=== PATIENT | female | born 1990 | race Caucasian/White ===

== ENCOUNTER 2017-11-04 02:51 | Observation (INO) ==
--- NOTE | 2017-11-04 02:56 | Emergency Department Note ---
Disposition Clinical Impression: Miscarriage Anemia Qualifiers: Anemia type: unspecified type Qualified Code(s): D64.9 - Anemia, unspecified Hypotension Qualifiers: Hypotension type: unspecified hypotension type Qualified Code(s): I95.9 - Hypotension, unspecified Disposition: Admitted As Inpatient Condition: Fair Referrals: Tripp Dunbar MD [Primary Care Provider] - Forms: ED Satisfaction Letter Time of Disposition: 06:00 HPI - General Chief complaint: ED OB/Uterine Contractions Stated complaint: miscarriage Time Seen by Provider: 11/04/17 02:53 Source: patient, EMS Mode of arrival: EMS Limitations: no limitations Nursing Notes Reviewed: Yes Vital Signs Reviewed: Yes - History of Present Illness HPI Narrative: Concern about status. Patient is a return from elopement from the ER from earlier visit. In summary, previous history of present illness as below. "27 y.o. female who presents c/o intermittent 4/10 L sided and lower abd cramping with vaginal bleeding x 3 days. Patient states the bleeding feels like a light menstrual cycle. She reports at an unknown gestation and states she believes her LMP to be approximately 3.5-4 months ago, with positive home tests 2.5 months ago. She is not taking vitamins and has not seen an OB yet. Patient states she previously had a miscarriage, where she lost one of her twins, and notes she woke up with heavy bleeding at that time. She reports N/V throughout the . She notes a history of kidney stones and denies similarity. She denies any hematuria, dysuria, diarrhea, constipation, CP, shortness of breath, or any other significant symptoms." Patient had a CBC performed at that time that showed stable hemoglobin. Vitals were stable. She had an ultrasound that showed approximately 6 week intrauterine with heartbeat, concern for early demise. Patient eloped prior to receiving results. She now returns via EMS due to concern for vaginal bleeding, passage of large clots and possible tissue. Patient notes that her bleeding has worsened, she is concern for either active or post miscarriage at this time. Denies any other new symptoms such as chest pain, shortness of breath, fevers, nausea, vomiting since her previous visit approximately 3-4 hours ago. - Related Data Allergies Allergy/AdvReac Type Severity Reaction Status Date / Time bee venom protein (honey bee) Allergy Swelling Verified 06/26/16 14:05 of Lip/Tongue/Throat hydrocodone Allergy Hives Verified 11/08/15 11:46 All systems ED: reviewed and negative except as stated. Constitutional: Denies: fever Cardiovascular: Denies: chest pain Respiratory: Denies: cough, dyspnea Gastrointestinal: Reports: abdominal pain. Denies: nausea, vomiting, diarrhea Genitourinary: Reports: other (Vaginal bleeding). Denies: urgency, dysuria, frequency, hematuria, discharge Integumentary: Denies: rash Neurological: Denies: headache, weakness, numbness, paresthesias PMH - Social History Smoking Status: Current every day smoker Alcohol use: Reports: rarely Drug use: Reports: none Physical Exam - General Limitations: no limitations General appearance: alert, in no apparent distress - Head Head exam: atraumatic, normocephalic, normal inspection - Eye Eye exam: Present: normal appearance, PERRL, EOMI - ENT ENT exam: normal exam, normal oropharynx, mucous membranes moist - Neck Neck exam: Present: normal inspection, full ROM, trachea midline - Chest Chest inspection: Present: normal inspection, symmetric chest wall rise - Respiratory Respiratory exam: Present: normal lung sounds bilaterally - Cardiovascular Cardiovascular exam: Present: regular rate, normal rhythm, normal heart sounds - Abdominal Exam Abdominal exam: Present: soft, tenderness (suprapubic tenderness). Absent: distention, guarding, rebound, rigidity - Female Battery Container Tester Aluminum present during exam: Yes (Nurse Drew Ferraro)) External Exam: Present: other (bleeding from vagina, slow steady stream; ). Absent: lesions, lacerations, ecchymosis Speculum Exam: Present: Pt Deferred - Extremities Exam Extremities exam: Present: normal inspection, full ROM. Absent: tenderness, pedal edema - Neurological Exam Neurological exam: Present: alert, oriented X3 - Psychiatric Psychiatric exam: Present: normal affect, normal mood - Skin Skin exam: Present: warm, dry, intact, normal color Course Course Narrative: OB consult Estelita Campos came down to the ER for pelvic exam due to continued vaginal bleeding and concern for miscarriage. Accepted conception were pulled from the vaginal vault. Bleeding is controlled at this time. She recommended cytotec 200 micrograms now and then q8h x 2 doses. She recommended F/u or mari in the office and obtain a 48 hour beta quant. 06:02 patient has been monitor. No additional vaginal bleeding at this time. However, patient was tachycardic, had soft blood pressures in the 90s systolic. Patient was given 2 L normal saline bolus. Pulse has improved. She has had a decrease in hemoglobin from 14 to 11.6. We will admit for further observation due to soft blood pressures and large change in hemoglobin. Patient was reassessed and she has no continued vaginal bleeding at this time. 06:37 patient was admitted to hospitalist, accepted by Dr. Dempsye due to blood pressure monitoring in the above changes. He asked that I talked with OB/ APPRAISAL MANAGER consult again to see if they could reexamine patient this morning. I consult with PHONE REPRESENTATIVE injury prevention coordinator, spoke with Silvia Campos, expressed concern that there were changes in vital signs symptoms she last saw the patient, changes in heart rate and changes in hemoglobin level. Expressed both my and hospitalist request for the patient to be seen again today in consult due to the above changes. Consult has been placed. Vital Signs Temperature 99.5 F 11/04/17 03:04 Pulse Rate 106 11/04/17 03:04 Respiratory Rate 18 11/04/17 03:04 Blood Pressure 124/77 11/04/17 03:04 O2 Sat by Pulse Oximetry 100 11/04/17 03:04 Temperature 99.5 F 11/04/17 03:04 Pulse Rate 86 11/04/17 06:20 Respiratory Rate 18 11/04/17 06:20 Blood Pressure 95/56 11/04/17 06:20 O2 Sat by Pulse Oximetry 99 11/04/17 06:20 Oxygen Delivery Oxygen Delivery Room Air OB/Uterine Contractions - MDM Narrative Medical decision making narrative: OB consult Estelita Campos came down to the ER for pelvic exam due to continued vaginal bleeding and concern for miscarriage. Accepted conception were pulled from the vaginal vault. Bleeding is controlled at this time. She recommended cytotec 200 micrograms now and then q8h x 2 doses. She recommended F/u or thursday in the office and obtain a 48 hour beta quant. 06:02 patient has been monitor. No additional vaginal bleeding at this time. However, patient was tachycardic, had soft blood pressures in the 90s systolic. Patient was given 2 L normal saline bolus. Pulse has improved. She has had a decrease in hemoglobin from 14 to 11.6. We will admit for further observation due to soft blood pressures and large change in hemoglobin. Patient was reassessed and she has no continued vaginal bleeding at this time. 06:37 patient was admitted to hospitalist, accepted by Dr. Dempsey due to blood pressure monitoring in the above changes. He asked that I talked with OB/ APPRAISAL MANAGER consult again to see if they could reexamine patient this morning. I consult with PHONE REPRESENTATIVE injury prevention coordinator, spoke with Silvia Campos, expressed concern that there were changes in vital signs symptoms she last saw the patient, changes in heart rate and changes in hemoglobin level. Expressed both my and hospitalist request for the patient to be seen again today in consult due to the above changes. Consult has been placed. - Medical Records Medical records reviewed: Yes I reviewed the patient's medical records. - Lab Data Lab results reviewed: Yes I reviewed the patient's lab results. Result diagrams: 11/04/17 03:54 Lab Results 11/04/17 Range/Units 03:54 WBC 13.2 H (4.3-11.1) K/mcL RBC 3.75 L (3.82-4.97) M/mcL Hgb 11.6 D (11.5-15.4) g/dL Hct 35.3 (35.3-44.9) % MCV 94.1 (83.0-100.0) fL MCH 30.9 (28.0-33.3) pg MCHC 32.9 (31.6-35.5) g/dL RDW 12.5 (11.5-14.5) % Plt Count 270 (140-400) K/mcL MPV 10.7 (9.4-12.4) fL Immature Gran % 0.3 (0-4) % Seg Neutrophils % 78.2 % Lymphocytes % 16.1 % Monocytes % 4.8 % Eosinophils % 0.2 % Basophils % 0.4 % Neutrophils # 10.3 H (1.6-8.9) K/mcL Lymphocytes # 2.1 (0.6-4.6) K/mcL Monocytes # 0.6 (0.0-1.3) K/mcL Eosinophils # 0.0 (0.0-0.6) K/mcL Basophils # 0.1 (0.0-0.2) K/[facility] - Radiology Data Radiology results reviewed: Yes I reviewed the patient's radiology results. S.B.A.R. - S.B.A.R. Situation: Demographics, MOA Background: Presenting Complaint, Relevant PMH, Meds, & Allergies Assessment: Vital Signs, Course and respsone to treatment, Exam Concerns, Patient/Family Expectation, Pertinant Lab Results Recommendation: Barrier(s) to disposition, Recommendation based on pending studies, treatments, or consults S.B.A.R. Report Given to: Dr. Dempsey Attestation Statement - Attestation Attestation: I examined this patient and my medical decision-making was reviewed with the Resident Physician. I agree with the documented findings, disposition and treatment plan as described except to the extent set forth below. Patient returns after previous eloping with concern for vaginal hemorrhage in the setting of miscarriage. She is hemodynamically stable at this time however she is having significant vaginal bleeding and is refusing pelvic exam by the emergency department. She will be evaluated by PHONE REPRESENTATIVE. They are recommending Cytotec administration. The patient will receive Cytotec, discharge with gynecology follow-up and bleeding return precautions.
[2017-11-04] MEDS ORDERED: miSOPROStol 100 MCG TABLET PO ONE (04:01)
[2017-11-04 04:04] LABS: Basophils # 0.1 K/mcL (0.0-0.2); Basophils % 0.4 %; Eosinophils % 0.2 %; Hematocrit 35.3 % (35.3-44.9); Immature Granulocytes % 0.3 % (0-4); Lymphocytes # 2.1 K/mcL (0.6-4.6); Lymphocytes % 16.1 %; Mean Corpuscular HGB Conc 32.9 g/dL (31.6-35.5); Mean Corpuscular Hemoglobin 30.9 pg (28.0-33.3); Mean Corpuscular Volume 94.1 fL (83.0-100.0); Mean Platelet Volume 10.7 fL (9.4-12.4); Monocytes # 0.6 K/mcL (0.0-1.3); Monocytes % 4.8 %; Neutrophils # 10.3 K/mcL (1.6-8.9); Platelet Count 270 K/mcL (140-400); Red Blood Count 3.75 M/mcL (3.82-4.97); Red Cell Distribution Width 12.5 % (11.5-14.5); Segmented Neutrophils % 78.2 %
[2017-11-04] MEDS ORDERED: 0.9 % Sodium Chloride 1,000 ML IVC ONE ×2 (04:05→05:44)
[2017-11-04 04:06] LABS: Hemoglobin 11.6 g/dL (11.5-15.4)
--- NOTE | 2017-11-04 04:30 | OB/GYN Consult Note ---
Date of Encounter: 11/04/17 Time of Encounter: 04:11 Assessment and Plan (1) Spontaneous Status: Acute Contents from speculum exam sent to pathology Discussed plan of care of care with Dr. Park 200 g Cytotec by mouth every 8 hours 3 first dose to be given in ED follow-up beta hCG in 48 hours appointment in office next week on or Thursday with me Discussed with patient bleeding precautions and when to return to emergency department for further treatment Plan of care discussed with Dr. Swartz and Dr. Parsons History of Present Illness Consult date: 11/04/17 Requesting physician: Kelvin Parsons Reason for consult: early problem Chief complaint: vaginal bleeding cramping History of present illness: 27-year-old female presents to the emergency department with complaints of cramping and vaginal bleeding. Patient states she has very irregular menses only 1-2 on average a year, last menstrual period approximately 3-4 months ago. Patient states she had positive home UPT approximately 2 months ago (1 week after September 02), patient states she has not had care yet this . 3 days ago patient started spotting with leg cramps, increasing to light to moderate bleeding 2 days ago. Today patient started to have heavy bleeding with clots and severe cramping presented to ED. In ED was found to have a beta Quant of 7001. Pelvic ultrasound showed IUP approximately 6 weeks and 4 days without heartbeat, concern for miscarriage due to beta Quant being 7000. Large clots and bleeding noted onto floor seen by ED RN. Patient then left AMA from ED, returns ED approximately 2 hours later after returning home patient states she filled large pads with blood, also filled to check size pads with large amount of blood and clots, patient states she then passed out shower and return to ED. Called to ED to do pelvic exam on patient. Past Med Surg Social Fam HX - Past Medical History Medical history: no medical history Psychiatric history: no psych history - Past Surgical History Additional surgical history: right foot - Social History Smoking Status: Current every day smoker Smokeless Tobacco Status: No Alcohol use: rarely Drug use: none Medications and Allergies 3 Allergy/AdvReac Type Severity Reaction Status Date / Time bee venom protein (honey bee) Allergy Swelling Verified 06/26/16 14:05 of Lip/Tongue/Throat hydrocodone Allergy Hives Verified 11/08/15 11:46 Review of Systems Constitutional: as per HPI Exam - Vital Signs Vital signs: Initial Vital Signs Temp Pulse Resp BP Pulse Ox 99.5 F 106 18 124/77 100 11/04/17 03:04 11/04/17 03:04 11/04/17 03:04 11/04/17 03:04 11/04/17 03:04 - Constitutional Constitutional: well developed, well nourished, no acute distress, average body habitus - Abdomen Abdomen: Present: non tender - Comments Comments: Speculum exam shows large amount of bleeding and vaginal vault, large amount of formed tissue removed from cervical os and upper vaginal vault (sent to pathology) cervix then revisualized with bigger speculum, vaginal vault and cervix swabbed until free of blood, no further bleeding noted from cervical os after observing cervical os for 3 minutes removed speculum. Results Result Diagrams: 11/04/17 03:54 Abnormal lab results WBC 13.2 K/mcL (4.3-11.1) H 11/04/17 03:54 RBC 3.75 M/mcL (3.82-4.97) L 11/04/17 03:54 Neutrophils # 10.3 K/mcL (1.6-8.9) H 11/04/17 03:54 All other labs normal. Consult Discharge Plan - Plan Referrals: Tripp Dunbar MD [Partnered Physician] -
[2017-11-04] MEDS ORDERED: Naloxone 0.4 MG/ML INJ IVP PRN (08:16)
[2017-11-04 09:38] LABS: Basophils % 0.3 %; Eosinophils # 0.1 K/mcL (0.0-0.6); Eosinophils % 1.6 %; Hematocrit 29.4 % (35.3-44.9); Immature Granulocytes % 0.3 % (0-4); Lymphocytes # 2.5 K/mcL (0.6-4.6); Lymphocytes % 28.1 %; Mean Corpuscular HGB Conc 33.7 g/dL (31.6-35.5); Mean Corpuscular Hemoglobin 32.1 pg (28.0-33.3); Mean Corpuscular Volume 95.5 fL (83.0-100.0); Mean Platelet Volume 10.7 fL (9.4-12.4); Monocytes # 0.5 K/mcL (0.0-1.3); Neutrophils # 5.7 K/mcL (1.6-8.9); Platelet Count 232 K/mcL (140-400); Red Blood Count 3.08 M/mcL (3.82-4.97); Red Cell Distribution Width 12.4 % (11.5-14.5); Segmented Neutrophils % 63.7 %
[2017-11-04 09:57] LABS: Hemoglobin 9.9 g/dL (11.5-15.4)
--- NOTE | 2017-11-04 10:43 | Internal Med History&Physical ---
Date of Encounter: 11/04/17 Time of Encounter: 10:30 Internal Medicine - H&P: HPI Chief complaint: Spontaneous with acute blood loss and syncopal episode History of present illness: Ms. Bunn is a 27 year old female with no significant pmh, who presented with complaints of left sided and lower abdominal cramping with light vaginal bleeding for 3 days. She says the symptoms felt like a light menstrual cycle. She believes her last menstrual period was 3.5 - 4months ago and a home test was positive 2.5 months ago. She had not established care with an OB yet. She came to the ER due to bleeding which she said had progressed to heavy bleeding with blood clots and severe cramping. A pelvic ultrasound done showed an IUP of approx 6weeks with concern for miscarriage. She left AMA and went home but returned later with complaints of heavy bleeding and having passed out in the shower. She was seen by OB in the ED, who gave her a dose of misoprostol and recommended q 8hrly dose for a total 3 doses. She is being admitted for syncopal episode likely 2/2 to acute blood loss anemia Past Med Surg Social Fam HX - Past Medical History Medical history: no medical history Psychiatric history: no psych history - Past Surgical History Additional surgical history: right foot - Social History Smoking Status: Current every day smoker Smokeless Tobacco Status: No Alcohol use: rarely Drug use: none - Family History Mother History Unknown: Yes Internal Medicine - H&P: Meds No Known Home Drugs 11/04/17 [History] 3 Allergy/AdvReac Type Severity Reaction Status Date / Time bee venom protein (honey bee) Allergy Swelling Verified 06/26/16 14:05 of Lip/Tongue/Throat hydrocodone Allergy Hives Verified 11/08/15 11:46 All Systems PM: A 10-system review of systems was performed and is negative for pertinent findings except as documented above in the HPI. - Constitutional Constitutional: lethargy, no chills, no fever(s), no night sweats - EENT Eyes: no change in vision, no discharge, no pain, no photophobia Ears: no ear discharge, no ear pain, no tinnitus Nose, mouth and throat: no dysphagia, no nasal discharge, no neck pain, no sore throat - Cardiovascular Cardiovascular ROS IM: no chest pain, no diaphoresis, no dyspnea, no lightheadedness, no palpitations, no syncope - Respiratory Respiratory: no cough, no dyspnea, no wheezing, no excessive phlegm production - Gastrointestinal Gastrointestinal: no abdominal pain, no diarrhea, no hematemesis, no hematochezia, no melena, no nausea, no vomiting - Genitourinary Genitourinary: no change in urinary stream, no dysuria, no flank pain, no hematuria - Musculoskeletal Musculoskeletal ROS IM: no numbness, no tingling - Integumentary Integumentary IM: no rash, no unusual bruising - Neurological Neurological ROS: dizziness, no confusion, no convulsions, no focal weakness, no numbness, no tingling, no tremor(s) - Hematologic/Lymphatic Hematologic/Lymphatic: no easy bruising - Constitutional Vitals: Temp Pulse Resp BP Pulse Ox 99.3 F 94 13 105/53 99 11/04/17 09:33 11/04/17 09:33 11/04/17 09:33 11/04/17 09:33 11/04/17 09:33 Exam: NAD - Head Head exam: Present: atraumatic, normocephalic - Eye Eye exam: Present: PERRL, conjuntiva pink, sclera anicteric Pupils: Present: PERRL - Neck Neck exam general surgery: Present: supple, trachea midline. Absent: lymphadenopathy - Respiratory Respiratory exam: Present: CTAB. Absent: accessory muscle use, rales, rhonchi, wheezes - Cardiovascular Cardiovascular exam: Present: RRR, +S1, +S2. Absent: diastolic murmur, gallop, rubs, systolic murmur - GI/Abdominal GI/Abdominal exam: Present: normal bowel sounds, soft, no peritoneal signs. Absent: distended, tenderness - Extremities Exam Extremities exam: Present: warm, radial pulses palpable and symmetrical. Absent : calf tenderness, cyanotic, pedal edema - Neurological Exam Neurological exam: Present: CN II-XII intact, oriented X3, no focal deficits. Absent: pronater drift, facial droop, speech deficit - Skin Skin exam: Present: dry, intact Internal Med - H&P Results - Labs CBC & Chem 7: 11/04/17 09:15 Labs: Short CBC 11/04/17 Range/Units 09:15 WBC 9.0 (4.3-11.1) K/mcL Hgb 9.9 L D (11.5-15.4) g/dL Hct 29.4 L (35.3-44.9) % Plt Count 232 (140-400) K/mcL Neutrophils # 5.7 (1.6-8.9) K/mcL - Impressions ITS Impressions Chest X-Ray 11/04/17 08:42 IMPRESSION: No acute cardiopulmonary disease D/ / Edvin Ribeiro MD / Edvin Ribeiro MD Interpreting Provider: Edvin Ribeiro MD - Assessment and plan (1) Spontaneous Current Visit: Yes Status: Acute Assessment and plan: Patient had spontaneous and has been seen by group contract analyst. Currently stable. Will give 3 doses of misoprostol q 8hrs per oB recs Plan for discharge in am if stable (2) Symptomatic anemia Current Visit: Yes Status: Acute Assessment and plan: Anemia with acute blood loss. Hemglobin dropped from 14 to 9.9. Will transfuse 2 units PRBC. Monitor CBC q 12. (3) Leukocytosis Current Visit: Yes Status: Acute Assessment and plan: Resolved with IV fluids, CXR negative for any infection Qualifiers: Leukocytosis type: unspecified Qualified Code(s): D72.829 - Elevated white blood cell count, unspecified (4) Syncope Current Visit: Yes Status: Acute Assessment and plan: Pt reported passing out in bathroom. Likely 2/2 to hypovolemia from acute blood loss Transfuse 2 Units PRBC. Give Iv fluids. Monitor CBC Qualifiers: Qualified Code(s): R55 - Syncope and collapse (5) DVT prophylaxis Current Visit: Yes Status: Acute Assessment and plan: SCD - Time Spent With Patient Total time spent is greater than 50% in coordination of care (as documented) at patient's floor/unit and/or counseling patient:
[2017-11-04] MEDS: miSOPROStol 100 MCG TABLET PO SCH ×2 (10:59→18:34)
[2017-11-04] MEDS: 0.9 % Sodium Chloride 1,000 ML IVC SCH (11:00)
[2017-11-04] MEDS ORDERED: Nicotine 21 MG PATCH.TD24 TD SCH (11:15)
[2017-11-04] MEDS ORDERED: 0.9 % Sodium Chloride 250 ML ONE ×2 (13:15→21:36)
[2017-11-04 22:31] LABS: Basophils % 0.5 %; Eosinophils # 0.4 K/mcL (0.0-0.6); Eosinophils % 4.8 %; Hematocrit 33.4 % (35.3-44.9); Hemoglobin 11.3 g/dL (11.5-15.4); Immature Granulocytes % 0.2 % (0-4); Lymphocytes # 3.3 K/mcL (0.6-4.6); Lymphocytes % 37.9 %; Mean Corpuscular HGB Conc 33.8 g/dL (31.6-35.5); Mean Corpuscular Hemoglobin 31.8 pg (28.0-33.3); Mean Corpuscular Volume 94.1 fL (83.0-100.0); Mean Platelet Volume 11.1 fL (9.4-12.4); Monocytes # 0.5 K/mcL (0.0-1.3); Monocytes % 5.5 %; Neutrophils # 4.4 K/mcL (1.6-8.9); Platelet Count 223 K/mcL (140-400); Red Blood Count 3.55 M/mcL (3.82-4.97); Red Cell Distribution Width 13.2 % (11.5-14.5); Segmented Neutrophils % 51.1 %
[2017-11-04] MEDS ORDERED: Ondansetron ODT 4 MG TAB.RAPDIS SL ONE (23:20)
[2017-11-05] MEDS: 0.9 % Sodium Chloride 1,000 ML IVC SCH (00:10)
[2017-11-05 01:31] VITALS: BP 142/88
--- NOTE | 2017-11-05 03:38 | Discharge Summary ---
<Jerrod Julian - Last Filed: 11/05/17 03:32> Orders not resulted at time of discharge: Pending orders 11/04/17 09:14 Culture,Blood [BC] Routine Date of Encounter: 11/05/17 Time of Encounter: 03:32 - Discharge Diagnosis (1) Spontaneous Priority: Primary Status: Acute (2) Symptomatic anemia Priority: Secondary Status: Acute (3) Leukocytosis Priority: Secondary Status: Acute Qualifiers: Leukocytosis type: unspecified Qualified Code(s): D72.829 - Elevated white blood cell count, unspecified (4) Syncope Priority: Secondary Status: Acute Qualifiers: Syncope type: unspecified Qualified Code(s): R55 - Syncope and collapse (5) DVT prophylaxis Priority: Secondary Status: Acute Hospital course: Ms. Bunn is a 27 year old female who presented with complaints of left- sided and lower abdominal cramping with light vaginal bleeding for 3 days. Patient reported that she completed a home test and have months ago but had not established care with OB. Patient was found to have a miscarriage. During initial presentation patient left AMA but returned after she passed out taking a shower. She was then seen by OB in the emergency room and given misoprostol 3 doses and transfused with 2 units of PRBC. Patient completed her 3 doses of misoprostol and 2 units of packed red blood cells. I was paged overnight at 1 in the morning stating the patient wanted to leave AMA. Patient reports she was treated very unfairly in the emergency room including complaints about her being a vegetarian but only being offered meat for a diet. I explained to the patient that she still needs to be evaluated and treated for her anemia with repeat CBC in the morning as well as monitoring her blood pressure, as she had passed out, as she may have further episodes of syncope, low blood pressure, and anemia that still needed to be treated. Patient reported that she already had a follow-up appointment with OB on Thursday and that she stays long enough to receive her blood transfusion/misoprostol. At this time patient's blood pressure was 142/88, heart rate of 102 and she was satting 90% on room air. However patient was insistent that she wanted to leave and signed out AGAINST MEDICAL ADVICE. Discharge discussed with: patient - Time Spent with Patient Total time spent providing and/or coordinating discharge services: - Discharge Medications Home Medications: No Known Home Drugs 11/04/17 [History] Allergies/Adverse Reactions: 3 Allergy/AdvReac Type Severity Reaction Status Date / Time bee venom protein (honey bee) Allergy Swelling Verified 06/26/16 14:05 of Lip/Tongue/Throat hydrocodone Allergy Hives Verified 11/08/15 11:46 Date of admission: 11/04/17 06:54 Primary care physician: Tripp Dunbar MD Consults: OB Discharging clinician: Jerrod Julian Anticipated date of discharge: 11/05/17 - Constitutional Vitals: Temp Pulse Resp BP Pulse Ox 99 F 85 17 142/88 98 11/05/17 01:09 11/05/17 01:11/05/17 01:11/05/17 01:09 11/05/17 01:09 General appearance: Present: A&O X 3 Exam: patient alert oriented x3 - Patient Status Disposition: Left Against Medical Advice Condition: Fair - Discharge Instructions Follow Up With: Tripp Dunbar MD [Primary Care Provider] - Additional Instructions: If patient has further episodes of passing out, vaginal bleeding she needs to immediately come back to the emergency room. <Sinan Pacheco - Last Filed: 11/13/17 18:53> Date of Encounter: 11/05/17 - Discharge Diagnosis (1) Spontaneous Status: Acute (2) Symptomatic anemia Status: Acute (3) Leukocytosis Status: Acute Qualifiers: Leukocytosis type: unspecified Qualified Code(s): D72.829 - Elevated white blood cell count, unspecified (4) Syncope Status: Acute Qualifiers: Syncope type: unspecified Qualified Code(s): R55 - Syncope and collapse (5) DVT prophylaxis Status: Acute Hospital course: Ms. Bunn is a 27 year old female - Time Spent with Patient Total time spent providing and/or coordinating discharge services: Date of admission: 11/04/17 06:54 Primary care physician: Tripp Dunbar MD - Constitutional Vitals: Temp Pulse Resp BP Pulse Ox 99 F 85 17 142/88 98 11/05/17 01:09 11/05/17 01:09 11/05/17 01:09 11/05/17 01:11/05/17 01:09 - Attending Attestation Patient seen and examined. Wishing to leave AMA. Risks of further bleeding and mortality conveyed to patient by team. She does have follow up with OBGYN. Patint states that she understands the risks but remains adamant with regard to leaving. Instructed to return if bleeding recurs or symptoms of presyncope.occur.
== END 2017-11-05 01:09 | disposition left against medical advice (07) ==
LOC: 2SOUTHHOLD 02:51 → EMEROOARM 02:51 → 2SOUTHHOLD 07:18 → 3BNU 20:25
PROVIDERS: ADMIT Pediatrics; ATTEND Pediatrics

== ENCOUNTER 2018-03-03 15:23 | Inpatient (IN) ==
[2018-03-03 15:58] LABS: Basophils % 0.3 %; Eosinophils % 0.2 %; Immature Granulocytes % 0.4 % (0-4); Lymphocytes # 2.1 K/mcL (0.6-4.6); Lymphocytes % 19.8 %; Mean Corpuscular HGB Conc 32.6 g/dL (31.6-35.5); Mean Corpuscular Hemoglobin 30.5 pg (28.0-33.3); Mean Corpuscular Volume 93.7 fL (83.0-100.0); Monocytes # 0.4 K/mcL (0.0-1.3); Monocytes % 3.7 %; Platelet Count 209 K/mcL (140-400); Red Blood Count 4.59 M/mcL (3.82-4.97); Red Cell Distribution Width 12.8 % (11.5-14.5); Segmented Neutrophils % 75.6 %
[2018-03-03 16:16] LABS: Acetaminophen < 10 mcg/mL (10-20); BUN/Creatinine Ratio 11 (6-26); Blood Urea Nitrogen 9 mg/dL (6-20); Calcium 9.3 mg/dL (8.6-10.3); Carbon Dioxide 28 mEq/L (23-29); Chloride 108 mEq/L (98-107); Ethanol < 10 mg/dL (Less than 10); Glucose 119 mg/dL (70-105); Osmolality,Calculated 292 (280-300); Potassium 3.3 mEq/L (3.5-5.1); Salicylate < 2.5 mg/dL (15.0-30.0); Sodium 141 mEq/L (136-145); eGFR For Non-African Americans > 60 (> 60)
[2018-03-03 16:36] LABS: Bilirubin,Urine Small (Negative); Blood,Urine Negative (Negative); Clarity,Urine Cloudy (Clear); Color,Urine Dark Yellow (Yellow); Glucose,Urine (UA) Normal (Normal); Ketones,Urine Trace mg/dL (Negative); Leukocyte Esterase,Urine Small (Negative); Nitrite,Urine Negative (Negative); Protein,Urine 100 mg/dL (Neg-Trace); Specific Gravity,Urine 1.024 (1.010-1.025); Urobilinogen,Urine Normal (Normal)
[2018-03-03 16:37] LABS: Bacteria,Urine Moderate per hpf (None-Few); RBC,Urine 0-3 per hpf (0-3); Squamous Epithelial Cell,Urine Many per lpf (None-Few); WBC,Urine 30-50 per hpf (0-3)
[2018-03-03 16:38] LABS: Amphetamine Screen,Urine Negative ng/mL (Cutoff=1000); Barbiturate Screen,Urine Negative ng/mL (Cutoff=200); Benzodiazepines Screen,Urine Negative ng/mL (Cutoff=200); Cannabinoid Screen,Urine Positive ng/mL (Cutoff = 50); Cocaine Screen,Urine Negative ng/mL (Cutoff= 300); Opiate Screen,Urine Negative ng/mL (Cutoff=300); Phencyclidine Screen,Urine Negative ng/mL (Cutoff=25)
--- NOTE | 2018-03-03 16:53 | Emergency Department Note ---
Disposition Clinical Impression: Suicidal ideation, Acute anxiety Disposition: Admitted As Inpatient Condition: Fair Referrals: NONE,PCP [Primary Care Provider] - Forms: ED Satisfaction Letter Psych HPI - General Chief Complaint: ED Psychiatric Symptoms Stated Complaint: SI Time Seen by Provider: 03/03/18 15:27 Source: patient, EMS Mode of arrival: ambulatory Limitations: no limitations Nursing Notes Reviewed: Yes Vital Signs Reviewed: Yes - History of Present Illness HPI Narrative: 27-year-old female brought to the emergency department by EMS for evaluation of suicidal ideation. Patient states that she was standing on a bridge and was contemplating jumping off the bridge to end her life. Police came and down off the bridge. She states she had suicidal ideation because her home life is "messed up". Patient states that she does not have a place to live, she is upset with her significant other's family. Patient denies EtOH or drug abuse. She denies other attempts to end her life in the recent past. She does state that she had a history of suicidal ideation and attempt multiple years ago but is unwilling to tell me what had happened. - Related Data Home Medications Medication Instructions Recorded Confirmed No Known Home Drugs 11/04/17 03/03/18 Allergies Allergy/AdvReac Type Severity Reaction Status Date / Time bee venom protein (honey bee) Allergy Swelling Verified 06/26/16 14:05 of Lip/Tongue/Throat hydrocodone Allergy Hives Verified 11/08/15 11:46 All systems ED: reviewed and negative except as stated. Review of Systems: As Per HPI Past Medical History - Past Medical History Attestation: Yes The following information was validated with the patient. 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 Bowel sounds present Neuro: A&O to person, place, time and situation. No focal deficits noted on exam - General Limitations: no limitations General appearance: alert, in no apparent distress Course Vital Signs Temperature 98.3 F 03/03/18 15:31 Pulse Rate 119 03/03/18 15:31 Respiratory Rate 20 03/03/18 15:31 Blood Pressure 127/87 03/03/18 15:31 O2 Sat by Pulse Oximetry 98 03/03/18 15:31 Temperature 98.3 F 03/03/18 15:31 Pulse Rate 119 03/03/18 15:38 Respiratory Rate 15 03/03/18 15:38 Blood Pressure 127/87 03/03/18 15:38 O2 Sat by Pulse Oximetry 98 03/03/18 15:38 Oxygen Delivery Oxygen Delivery Room Air Psych - MDM Narrative Medical decision making narrative: Patient was medically cleared and will be evaluated by [facility] [place]. [facility] evaluated the patient and found her to require inpatient testing for further care and evaluation. I agree with this plan. Patient will be admitted for further care. - Medical Records Medical records reviewed: Yes I reviewed the patient's medical records. - Lab Data Lab results reviewed: Yes I reviewed the patient's lab results. Result diagrams: 03/03/18 15:46 03/03/18 15:46 Lab Results 03/03/18 03/03/18 03/03/18 Range/Units 15:46 15:46 16:10 WBC 10.6 (4.3-11.1) K/mcL RBC 4.59 (3.82-4.97) M/mcL Hgb 14.0 (11.5-15.4) g/dL Hct 43.0 (35.3-44.9) % MCV 93.7 (83.0-100.0) fL MCH 30.5 (28.0-33.3) pg MCHC 32.6 (31.6-35.5) g/dL RDW 12.8 (11.5-14.5) % Plt Count 209 (140-400) K/mcL MPV 12.0 (9.4-12.4) fL Immature Gran % 0.4 (0-4) % Seg Neutrophils % 75.6 % Lymphocytes % 19.8 % Monocytes % 3.7 % Eosinophils % 0.2 % Basophils % 0.3 % Neutrophils # 8.0 (1.6-8.9) K/mcL Lymphocytes # 2.1 (0.6-4.6) K/mcL Monocytes # 0.4 (0.0-1.3) K/mcL Eosinophils # 0.0 (0.0-0.6) K/mcL Basophils # 0.0 (0.0-0.2) K/mcL Sodium 141 (136-145) mEq/L Potassium 3.3 L (3.5-5.1) mEq/L Chloride 108 H (98-107) mEq/L Carbon Dioxide 28 (23-29) mEq/L BUN 9 (6-20) mg/dL Creatinine 0.81 (0.60-1.20) mg/dL Est GFR ( Amer) > 60 (> 60) Est GFR (Non-Af Amer) > 60 (> 60) BUN/Creatinine Ratio 11 (6-26) Glucose 119 H (70-105) mg/dL Calculated Osmolality 292 (280-300) Calcium 9.3 (8.6-10.3) mg/dL Urine Color Dark Yellow (Yellow) Urine Clarity Cloudy A (Clear) Urine pH 7.0 (5.0-8.0) pH Units Ur Specific [place] 1.024 (1.010-1.025) Urine Protein 100 H (Neg-Trace) mg/dL Urine Glucose (UA) Normal (Normal) mg/dL Urine Ketones Trace H (Negative) mg/dL Urine Blood Negative (Negative) Urine Nitrite Negative (Negative) Urine Bilirubin Small H (Negative) Urine Urobilinogen Normal (Normal) mg/dL Ur Leukocyte Esterase Small H (Negative) Urine Microscopic RBC 0-3 (0-3) per hpf Urine Microscopic WBC 30-50 H (0-3) per hpf Ur Squamous Epith Cells Many H (None-Few) per lpf Calcium Oxalate Crystal Present Urine Bacteria Moderate H (None-Few) per hpf Hyaline Casts None Seen (None-Few) per lpf Urine Mucus Many H (Few) Salicylates < 2.5 L (15.0-30.0) mg/dL Urine Opiates Screen (Kubjpa=424) ng/mL Acetaminophen < 10 L (10-20) mcg/mL Ur Barbiturates Screen (Mdowrp=747) ng/mL Ur Phencyclidine Scrn (Cutoff=25) ng/mL Ur Amphetamines Screen (Uveijk=4015) ng/mL U Benzodiazepines Scrn (Esjjzg=926) ng/mL Urine Cocaine Screen (Cutoff= 300) ng/mL U Marijuana (THC) Screen (Cutoff = 50) ng/mL Ur Drug Screen Interp Ethyl Alcohol < 10 (Less than 10) mg/dL 03/03/18 Range/Units 16:10 WBC (4.3-11.1) K/mcL RBC (3.82-4.97) M/mcL Hgb (11.5-15.4) g/dL Hct (35.3-44.9) % MCV (83.0-100.0) fL MCH (28.0-33.3) pg MCHC (31.6-35.5) g/dL RDW (11.5-14.5) % Plt Count (140-400) K/mcL MPV (9.4-12.4) fL Immature Gran % (0-4) % Seg Neutrophils % % Lymphocytes % % Monocytes % % Eosinophils % % Basophils % % Neutrophils # (1.6-8.9) K/mcL Lymphocytes # (0.6-4.6) K/mcL Monocytes # (0.0-1.3) K/mcL Eosinophils # (0.0-0.6) K/mcL Basophils # (0.0-0.2) K/mcL Sodium (136-145) mEq/L Potassium (3.5-5.1) mEq/L Chloride (98-107) mEq/L Carbon Dioxide (23-29) mEq/L BUN (6-20) mg/dL Creatinine (0.60-1.20) mg/dL Est GFR ( Amer) (> 60) Est GFR (Non-Af Amer) (> 60) BUN/Creatinine Ratio (6-26) Glucose (70-105) mg/dL Calculated Osmolality (280-300) Calcium (8.6-10.3) mg/dL Urine Color (Yellow) Urine Clarity (Clear) Urine pH (5.0-8.0) pH Units Ur Specific [place] (1.010-1.025) Urine Protein (Neg-Trace) mg/dL Urine Glucose (UA) (Normal) mg/dL Urine Ketones (Negative) mg/dL Urine Blood (Negative) Urine Nitrite (Negative) Urine Bilirubin (Negative) Urine Urobilinogen (Normal) mg/dL Ur Leukocyte Esterase (Negative) Urine Microscopic RBC (0-3) per hpf Urine Microscopic WBC (0-3) per hpf Ur Squamous Epith Cells (None-Few) per lpf Calcium Oxalate Crystal Urine Bacteria (None-Few) per hpf Hyaline Casts (None-Few) per lpf Urine Mucus (Few) Salicylates (15.0-30.0) mg/dL Urine Opiates Screen Negative ([place]=106) ng/mL Acetaminophen (10-20) mcg/mL Ur Barbiturates Screen Negative (Shexst=811) ng/mL Ur Phencyclidine Scrn Negative (Cutoff=25) ng/mL Ur Amphetamines Screen Negative (Yrgwht=4116) ng/mL U Benzodiazepines Scrn Negative (Zxunfl=614) ng/mL Urine Cocaine Screen Negative (Cutoff= 300) ng/mL U Marijuana (THC) Screen Positive H (Cutoff = 50) ng/mL Ur Drug Screen Interp See Below Ethyl Alcohol (Less than 10) mg/dL Psychiatric Medical Clearance - Medical Clearance Checklist Medical History: No Social History Section defined Current Vitals: Last Vital Signs Temp 98.3 F 03/03/18 15:31 Pulse 119 03/03/18 15:38 Resp 15 03/03/18 15:38 BP 127/87 03/03/18 15:38 Pulse Ox 98 03/03/18 15:38 Psychiatric Lab Panel: Drug Levels and Toxicity 03/03/18 03/03/18 15:46 16:10 Urine Opiates Screen Negative Acetaminophen < 10 L Ur Barbiturates Screen Negative Ur Phencyclidine Scrn Negative Ur Amphetamines Screen Negative U Benzodiazepines Scrn Negative Urine Cocaine Screen Negative U Marijuana (THC) Screen Positive H Ethyl Alcohol < 10 Abnormal Labs: Abnormal lab results Potassium 3.3 mEq/L (3.5-5.1) L 03/03/18 15:46 Chloride 108 mEq/L (98-107) H 03/03/18 15:46 Glucose 119 mg/dL (70-105) H 03/03/18 15:46 Urine Clarity Cloudy (Clear) A 03/03/18 16:10 Urine Protein 100 mg/dL (Neg-Trace) H 03/03/18 16:10 Urine Ketones Trace mg/dL (Negative) H 03/03/18 16:10 Urine Bilirubin Small (Negative) H 03/03/18 16:10 Ur Leukocyte Esterase Small (Negative) H 03/03/18 16:10 Urine Microscopic WBC 30-50 per hpf (0-3) H 03/03/18 16:10 Ur Squamous Epith Cells Many per lpf (None-Few) H 03/03/18 16:10 Urine Bacteria Moderate per hpf (None-Few) H 03/03/18 16:10 Urine Mucus Many (Few) H 03/03/18 16:10 Salicylates < 2.5 mg/dL (15.0-30.0) L 03/03/18 15:46 Acetaminophen < 10 mcg/mL (10-20) L 03/03/18 15:46 U Marijuana (THC) Screen Positive ng/mL (Cutoff = 50) H 03/03/18 16:10 Statement of Medical Clearance: I have evaluated the patient, reviewed diagnostic information, and certify that the patient's medical condition is sufficiently stable that transfer to the psychiatric unit does not pose a significant risk of deterioration.
[2018-03-03 16:54] LABS: Calcium Oxalate Crystals,Urine Present
[2018-03-03 16:55] LABS: Hyaline Casts,Urine None Seen per lpf (None-Few); Mucus,Urine Many (Few)
[2018-03-03] MEDS ORDERED: *HR* LORazepam 1 MG TABLET PO ONE (18:08)
[2018-03-03] MEDS ORDERED: *HR* LORazepam 1 MG TABLET PO PRN (20:52)
[2018-03-03] MEDS ORDERED: Haloperidol Lactate 5 MG/ML VIAL IM PRN (20:52)
[2018-03-03] MEDS ORDERED: hydrOXYzine pamoate 25 MG CAPSULE PO PRN (20:52)
[2018-03-03] MEDS ORDERED: Mag Hydrox/Al Hydrox/Simeth 30 ML UDC PO PRN (20:52)
[2018-03-03] MEDS ORDERED: Acetaminophen 325 MG TABLET PO PRN (20:52)
[2018-03-03] MEDS ORDERED: *HR* LORazepam 2 MG/ML VIAL IM PRN (20:52)
[2018-03-03] MEDS ORDERED: traZODone 50 MG TABLET PO PRN (20:52)
[2018-03-03] MEDS ORDERED: MOM Conc 10 ML UD.LIQ PO PRN (20:52)
--- NOTE | 2018-03-04 12:32 | Psychiatry History & Physical ---
Date of Encounter: 03/04/18 Time of Encounter: 12:00 History of Present Illness Medicare Admission Attestation: For traditional Medicare patients the provided hospital inpatient services are reasonable and necessary and in the case of services not specified as inpatient-only under 42 CFR 419.22 (n), that they are appropriately provided as inpatient services in accordance 42 CFR 412.3. For Critical Access Hospital the patient may reasonably be expected to be discharged or transferred to a hospital within 96 hours after admission to the Critical Access Hospital. Admitted From: Home Plans for Post Hospital Care: Home History of Present Illness: 27-year-old female brought to the emergency department by EMS for evaluation of suicidal ideation. Patient states that she was standing on a bridge and was contemplating jumping off the bridge to end her life. Police came and down off the bridge. She states she had suicidal ideation because her home life is "messed up". Patient states that she does not have a place to live, she is upset with her significant other's family. Patient denies EtOH or drug abuse. She denies other attempts to end her life in the recent past. She does state that she had a history of suicidal ideation and attempt multiple years ago but is unwilling to tell me what had happened. Pt is a 27 yo, , female, never x2, x2, with 4 children (2, 4, 6,8)who presented for mood and depression with suicidal ideations to the emergency department. Pt noted thoughts that she wants to kill myself. Pt noted reports of wanting to "jump off the bridge. Pt Noted he was doing "not too good today." Pt stated that his appetite was "reduced....." Pt stated that he slept "about 8 hours." last night. Pt noted his appetite is "okay." Pt rated his depression a "0," on a scale of zero to ten with ten being the worst and zero being none. Pt rated his anxiety a "10," on the same scale. Pt denied any current thoughts to harm herself or anyone else. Pt noted he currently feels safe and comfortable on the unit. Pt denied any auditory or visual hallucinations. Pt noted she has her own home in [place], [place]. Pt noted that her highest level of education is G with near an associates degree. Pt noted she is currently unemployed. Pt denies multiple inpt psychiatric hospitalizations. Pt noted 3 previous suicide attempts cutting and bridge. Pt noted her Uncle completed suicide via overdose. PT noted her mother and brother have mood D/O or Bipolar D/O. PT agreed to utilizing only quetiapine and lithium for medication management of Bipolar D/O. Pt was educated on the risks benefits and side-effects of these medications including no medication, pt was in agreement. Pt denied any hx of HEP C, TBIs, HIV or seizures. No TD noted, AIMS=0 Tobacco: 1ppd Alcohol: Denies Street: Marijuana daily Caffeine: 2-3 per day 1. Psychiatric Illness management 2. The treatment team reviewed with the patient the diagnosis and treatment recommendations to include the risks, benefits, and side effects of chosen medications. 3. The patient verbalized understanding and agreed with the treatment regimen as outlined above. 4. The patient was encouraged to participate in groups. 5. Medical records, Labs, Diagnotic tests reviewed 6. Interval History. 7. Review current labs 8. Continue current medications 9. Supportive Therapy Provided 10. Pt had an opportunity to ask questions and address concerns 11. Pt encouraged to continue therapy group or individual. 12. Pt was in agreement with treatment plan. 13. The risks benefits and side effects of medications were discussed with the patient, including alternatives and no treatment. 14. Start lurasidone 20 mg PO QAM for mood take with 300 Kcal of food. Past Med Surg Social Fam HX - Past Medical History Medical history: no medical history - Past Psychiatric History Psychiatric history: Reports: bipolar, depression Family psychiatric history: Yes Family History of Suicide: Completed - Social History Smoking Status: Current every day smoker Smokeless Tobacco Status: No Alcohol use: rarely Drug use: none Medications & Allergies No Known Home Drugs 11/04/17 [History] Allergy/AdvReac Type Severity Reaction Status Date / Time bee venom protein (honey bee) Allergy Swelling Verified 06/26/16 14:05 of Lip/Tongue/Throat hydrocodone Allergy Hives Verified 11/08/15 11:46 Review of Systems Constitutional: Denies: fever, chills, weakness, weight change Eyes: Denies: eye pain, vision change Ears, Nose, Throat: Denies: ear pain, throat pain, dental pain, hearing loss, congestion Cardiovascular: Denies: chest pain, palpitations, dyspnea on exertion Respiratory: Denies: cough, dyspnea, wheezes Gastrointestinal: Denies: abdominal pain, nausea, vomiting, diarrhea, constipation Genitourinary female: Denies: urgency, dysuria, frequency, abnormal menses, dyspareunia Musculoskeletal: Denies: joint swelling, joint pain Integumentary: Denies: rash, lesions, pruritus Neurological: Denies: headache, weakness, numbness, memory loss Psychiatric: Reports: depression Endocrine: Denies: fatigue, heat or cold intolerance Hematologic/Lymphatic: Denies: easy bruising, lymphadenopathy Allergic/Immunologic: Denies: urticaria, itchy eyes Exam - HEENT Head exam IM: Present: atraumatic Eye exam IM: Present: EOMI, normal appearance, PERRL ENT exam IM: Present: normal exam - Neurological Neurological exam: Present: CN II-XII intact - Respiratory Respiratory exam IM: Present: CTAB - GI/Abdominal GI/Abdominal exam IM: Present: normal bowel sounds, soft. Absent: tenderness - Extremities Extremities exam IM: Present: full ROM - Skin Skin exam IM: Present: dry, warm - Constitutional Vitals: Temp Pulse Resp BP Pulse Ox 97.8 F 74 18 112/79 98 03/03/18 21:00 03/03/18 21:00 03/03/18 21:00 03/03/18 21:00 03/03/18 15:38 General appearance: age & developmentally appropriate, well-groomed, well- nourished - Musculoskeletal Gait: normal Station: relaxed Strength & Tone: normal for patient - Psychiatric Patient Orientation: Yes Person, Yes Time, Yes Place Level of alertness: Alert Behavior: calm, cooperative Psychomotor activity: Normal Eye Contact: Maintains Eye Contact Mood Description: Angry, Depressed Affect description: congruent with mood, tearful, dysphoric Speech Volume: Normal Speech pattern: normal rate, normal rhythm, normal tone, fluent, spontaneous Language & Vocabulary: consistent with education Thought Process: Linear, Goal Oriented Thought Content: No Suicidal ideation, No Homicidal ideation, No Overt delusions Perceptual Disturbances: No Auditory hallucinations, No Visual hallucinations Attention Span Ability: Capable of Focused Attention Memory Description: Grossly Intact Patient Reliability: Questionable Historian Fund of knowledge: Yes abstraction ability, Yes average, Yes aware of current events Intelligence Estimate: Average Judgment: Limited Insight: Partial Results - Drug Levels and Toxicology Drug Levels and Toxicology: Drug Levels and Toxicity 03/03/18 03/03/18 15:46 16:10 Urine Opiates Screen Negative Acetaminophen < 10 L Ur Barbiturates Screen Negative Ur Phencyclidine Scrn Negative Ur Amphetamines Screen Negative U Benzodiazepines Scrn Negative Urine Cocaine Screen Negative U Marijuana (THC) Screen Positive H Ethyl Alcohol < 10 - Labs Labs: Laboratory Last Values WBC 10.6 K/mcL (4.3-11.1) 03/03/18 15:46 RBC 4.59 M/mcL (3.82-4.97) 03/03/18 15:46 Hgb 14.0 g/dL (11.5-15.4) 03/03/18 15:46 Hct 43.0 % (35.3-44.9) 03/03/18 15:46 MCV 93.7 fL (83.0-100.0) 03/03/18 15:46 MCH 30.5 pg (28.0-33.3) 03/03/18 15:46 MCHC 32.6 g/dL (31.6-35.5) 03/03/18 15:46 RDW 12.8 % (11.5-14.5) 03/03/18 15:46 Plt Count 209 K/mcL (140-400) 03/03/18 15:46 MPV 12.0 fL (9.4-12.4) 03/03/18 15:46 Immature Gran % 0.4 % (0-4) 03/03/18 15:46 Seg Neutrophils % 75.6 % 03/03/18 15:46 Lymphocytes % 19.8 % 03/03/18 15:46 Monocytes % 3.7 % 03/03/18 15:46 Eosinophils % 0.2 % 03/03/18 15:46 Basophils % 0.3 % 03/03/18 15:46 Neutrophils # 8.0 K/mcL (1.6-8.9) 03/03/18 15:46 Lymphocytes # 2.1 K/mcL (0.6-4.6) 03/03/18 15:46 Monocytes # 0.4 K/mcL (0.0-1.3) 03/03/18 15:46 Eosinophils # 0.0 K/mcL (0.0-0.6) 03/03/18 15:46 Basophils # 0.0 K/mcL (0.0-0.2) 03/03/18 15:46 Sodium 141 mEq/L (136-145) 03/03/18 15:46 Potassium 3.3 mEq/L (3.5-5.1) L 03/03/18 15:46 Chloride 108 mEq/L (98-107) H 03/03/18 15:46 Carbon Dioxide 28 mEq/L (23-29) 03/03/18 15:46 BUN 9 mg/dL (6-20) 03/03/18 15:46 Creatinine 0.81 mg/dL (0.60-1.20) 03/03/18 15:46 Est GFR ( Amer) > 60 (> 60) 03/03/18 15:46 Est GFR (Non-Af Amer) > 60 (> 60) 03/03/18 15:46 BUN/Creatinine Ratio 11 (6-26) 03/03/18 15:46 Glucose 119 mg/dL (70-105) H 03/03/18 15:46 Calculated Osmolality 292 (280-300) 03/03/18 15:46 Calcium 9.3 mg/dL (8.6-10.3) 03/03/18 15:46 Urine Color Dark Yellow (Yellow) 03/03/18 16:10 Urine Clarity Cloudy (Clear) A 03/03/18 16:10 Urine pH 7.0 pH Units (5.0-8.0) 03/03/18 16:10 Ur Specific [place] 1.024 (1.010-1.025) 03/03/18 16:10 Urine Protein 100 mg/dL (Neg-Trace) H 03/03/18 16:10 Urine Glucose (UA) Normal mg/dL (Normal) 03/03/18 16:10 Urine Ketones Trace mg/dL (Negative) H 03/03/18 16:10 Urine Blood Negative (Negative) 03/03/18 16:10 Urine Nitrite Negative (Negative) 03/03/18 16:10 Urine Bilirubin Small (Negative) H 03/03/18 16:10 Urine Urobilinogen Normal mg/dL (Normal) 03/03/18 16:10 Ur Leukocyte Esterase Small (Negative) H 03/03/18 16:10 Urine Microscopic RBC 0-3 per hpf (0-3) 03/03/18 16:10 Urine Microscopic WBC 30-50 per hpf (0-3) H 03/03/18 16:10 Ur Squamous Epith Cells Many per lpf (None-Few) H 03/03/18 16:10 Calcium Oxalate Crystal Present 03/03/18 16:10 Urine Bacteria Moderate per hpf (None-Few) H 03/03/18 16:10 Hyaline Casts None Seen per lpf (None-Few) 03/03/18 16:10 Urine Mucus Many (Few) H 03/03/18 16:10 Salicylates < 2.5 mg/dL (15.0-30.0) L 03/03/18 15:46 Urine Opiates Screen Negative ng/mL (Bosadm=968) 03/03/18 16:10 Acetaminophen < 10 mcg/mL (10-20) L 03/03/18 15:46 Ur Barbiturates Screen Negative ng/mL (Asfsdy=095) 03/03/18 16:10 Ur Phencyclidine Scrn Negative ng/mL (Cutoff=25) 03/03/18 16:10 Ur Amphetamines Screen Negative ng/mL (Loxwld=6868) 03/03/18 16:10 U Benzodiazepines Scrn Negative ng/mL (Kbseqs=884) 03/03/18 16:10 Urine Cocaine Screen Negative ng/mL (Cutoff= 300) 03/03/18 16:10 U Marijuana (THC) Screen Positive ng/mL (Cutoff = 50) H 03/03/18 16:10 Ur Drug Screen Interp See Below 03/03/18 16:10 Ethyl Alcohol < 10 mg/dL (Less than 10) 03/03/18 15:46 Assessment and Plan (1) Bipolar disorder current episode depressed Current visit: Yes Status: Acute Plan: Admit inpatient for safety and stabilization, Close observation, Suicide Precautions per unit protocol, Encourage participation in unit milieu, Group Therapy, Monitor sleep, Monitor appetite Risks, benefits, side effects, alternatives discussed w/pt: Yes Patient agreeable to treatment: Yes Plans for Post Hospital Care: at Home Qualifiers: Current episode severity: severe Psychotic features: without psychotic features Qualified Code(s): F31.4 - Bipolar disorder, current episode depressed, severe, without psychotic features (2) Borderline personality disorder Current visit: Yes Status: Acute Plan: Admit inpatient for safety and stabilization, Close observation, Suicide Precautions per unit protocol, Encourage participation in unit milieu, Group Therapy, Monitor sleep, Monitor appetite Risks, benefits, side effects, alternatives discussed w/pt: Yes Patient agreeable to treatment: Yes Plans for Post Hospital Care: at Home (3) Borderline personality disorder Current visit: Yes Status: Acute Plan: Admit inpatient for safety and stabilization, Close observation, Suicide Precautions per unit protocol, Encourage participation in unit milieu, Group Therapy, Monitor sleep, Monitor appetite Risks, benefits, side effects, alternatives discussed w/pt: Yes Patient agreeable to treatment: Yes Plans for Post Hospital Care: at Home (4) Suicidal ideation Current visit: Yes Status: Acute Plan: Admit inpatient for safety and stabilization, Close observation, Suicide Precautions per unit protocol, Encourage participation in unit milieu, Group Therapy, Monitor sleep, Monitor appetite Risks, benefits, side effects, alternatives discussed w/pt: Yes Patient agreeable to treatment: Yes Plans for Post Hospital Care: at Home
[2018-03-04] MEDS: Lurasidone 20 MG TABLET PO SCH (14:04)
[2018-03-05] MEDS: Lurasidone 20 MG TABLET PO SCH (08:34)
--- NOTE | 2018-03-05 12:24 | Psychiatry Progress Note ---
Date of Encounter: 03/05/18 Time of Encounter: 12:00 Subjective Interval history: Pt is a 27 yo, , female, never x2, x2, with 4 children (2, 4, 6,8)who presented for mood and depression with suicidal ideations to the emergency department. Upon admission pt noted thoughts that she wants to kill myself, via "jump off the bridge. Pt noted she is doing "much better today. Pt Noted she is feeling more optimistic about her treatment plan. Pt Noted he was doing "much better today." Pt stated that his appetite was "better...." Pt stated that he slept "about 8 hours." last night. Pt noted his appetite is "okay." Pt rated his depression a "1," on a scale of zero to ten with ten being the worst and zero being none. Pt rated his anxiety a "0," on the same scale. Pt denied any current thoughts to harm herself or anyone else. Pt noted he currently feels safe and comfortable on the unit. Pt denied any auditory or PT agreed to utilizing lurasidone for medication management of Bipolar D/O. Pt was educated on the risks benefits and side-effects of these medications including no medication, pt was in agreement. Pt denied any hx of HEP C, TBIs, HIV or seizures. No TD noted, AIMS=0 Tobacco: 1ppd Alcohol: Denies Street: Marijuana daily Caffeine: 2-3 per day 1. Psychiatric Illness management 2. The treatment team reviewed with the patient the diagnosis and treatment recommendations to include the risks, benefits, and side effects of chosen medications. 3. The patient verbalized understanding and agreed with the treatment regimen as outlined above. 4. The patient was encouraged to participate in groups. 5. Medical records, Labs, Diagnotic tests reviewed 6. Interval History. 7. Review current labs 8. Continue current medications 9. Supportive Therapy Provided 10. Pt had an opportunity to ask questions and address concerns 11. Pt encouraged to continue therapy group or individual. 12. Pt was in agreement with treatment plan. 13. The risks benefits and side effects of medications were discussed with the patient, including alternatives and no treatment. 14. Continue lurasidone 20 mg PO QAM for mood take with 300 Kcal of food. 15. Draw UPT due to concern with Review of Systems Constitutional: Denies: fever, chills, weakness, weight change Eyes: Denies: eye pain, vision change Ears, Nose, Throat: Denies: ear pain, throat pain, dental pain, hearing loss, congestion Cardiovascular: Denies: chest pain, palpitations, dyspnea on exertion Respiratory: Denies: cough, dyspnea, wheezes Gastrointestinal: Denies: abdominal pain, nausea, vomiting, diarrhea, constipation Musculoskeletal: Denies: joint swelling, joint pain Neurological: Denies: headache, weakness, numbness, memory loss Psychiatric: Reports: depression Results - Vital Signs Vital Signs: Temp Pulse Resp BP Pulse Ox 99 F 85 18 113/80 99 03/05/18 09:00 03/05/18 09:00 03/05/18 09:00 03/05/18 09:00 03/05/18 09:00 Assessment and Plan (1) Bipolar disorder current episode depressed Current visit: Yes Status: Acute Plan: Continue hospitalization, Close observation, Suicide Precautions per unit protocol, Encourage participation in unit milieu, Group Therapy, Monitor sleep, Monitor appetite Risks, benefits, side effects, alternatives discussed w/pt: Yes Patient agreeable to treatment: Yes Qualifiers: Current episode severity: severe Psychotic features: without psychotic features Qualified Code(s): F31.4 - Bipolar disorder, current episode depressed, severe, without psychotic features (2) Borderline personality disorder Current visit: Yes Status: Acute Plan: Continue hospitalization, Close observation, Suicide Precautions per unit protocol, Encourage participation in unit milieu, Group Therapy, Monitor sleep, Monitor appetite Risks, benefits, side effects, alternatives discussed w/pt: Yes Patient agreeable to treatment: Yes (3) Suicidal ideation Current visit: Yes Status: Acute Plan: Continue hospitalization, Close observation, Suicide Precautions per unit protocol, Encourage participation in unit milieu, Group Therapy, Monitor sleep, Monitor appetite Risks, benefits, side effects, alternatives discussed w/pt: Yes Patient agreeable to treatment: Yes Consult Discharge Plan - Plan Referrals: NONE,PCP [Primary Care Provider] - Psychiatry Exam - Constitutional Vitals: Temp Pulse Resp BP Pulse Ox 99 F 85 18 113/80 99 03/05/18 09:00 03/05/18 09:00 03/05/18 09:00 03/05/18 09:00 03/05/18 09:00 General appearance: age & developmentally appropriate, well-groomed, well- nourished - Musculoskeletal Gait: normal Station: relaxed Strength & Tone: normal for patient - Psychiatric Patient Orientation: Yes Person, Yes Time, Yes Place Level of alertness: Alert Behavior: calm, cooperative Psychomotor activity: Normal Eye Contact: Maintains Eye Contact Mood Description: Depressed Affect description: congruent with mood, dysphoric Speech Volume: Normal Speech pattern: normal rate, normal rhythm, normal tone, fluent, spontaneous Language & Vocabulary: consistent with education Thought Process: Linear Thought Content: No Suicidal ideation, No Homicidal ideation, No Overt delusions Perceptual Disturbances: No Auditory hallucinations, No Visual hallucinations Attention Span Ability: Capable of Focused Attention Memory Description: Grossly Intact Patient Reliability: Reliable Historian Fund of knowledge: Yes abstraction ability, Yes aware of current events Intelligence Estimate: Average Judgment: Limited Insight: Partial
[2018-03-06] MEDS: Lurasidone 20 MG TABLET PO SCH (08:50)
--- NOTE | 2018-03-06 09:24 | Psychiatry Progress Note ---
Date of Encounter: 03/06/18 Time of Encounter: 09:15 Subjective Interval history: Pt is a 27 yo, , female, never x2, x2, with 4 children (2, 4, 6,8)who presented for mood and depression with suicidal ideations to the emergency department. Upon admission pt noted thoughts that she wants to kill myself, via "jump off the bridge. Pt noted she is doing "really good today. Pt Noted she is feeling more optimistic about her treatment plan. Pt Noted she was doing "really good today." Pt stated that his appetite was "continues to improve...." Pt stated that he slept "about 8 hours." last night. Pt noted his appetite is "okay." Pt rated his depression a "1," on a scale of zero to ten with ten being the worst and zero being none. Pt rated his anxiety a "0," on the same scale. Pt denied any current thoughts to harm herself or anyone else. Pt noted he currently feels safe and comfortable on the unit. Pt denied any auditory or visiual hallucinations. PT continues to agree to utilizing lurasidone for medication management of Bipolar D/O. Pt was educated on the risks benefits and side-effects of these medications including no medication, pt was in agreement. Pt denied any hx of HEP C, TBIs, HIV or seizures. No TD noted, AIMS=0 Tobacco: 1ppd Alcohol: Denies Street: Marijuana daily Caffeine: 2-3 per day 1. Psychiatric Illness management 2. The treatment team reviewed with the patient the diagnosis and treatment recommendations to include the risks, benefits, and side effects of chosen medications. 3. The patient verbalized understanding and agreed with the treatment regimen as outlined above. 4. The patient was encouraged to participate in groups. 5. Medical records, Labs, Diagnotic tests reviewed 6. Interval History. 7. Review current labs 8. Continue current medications 9. Supportive Therapy Provided 10. Pt had an opportunity to ask questions and address concerns 11. Pt encouraged to continue therapy group or individual. 12. Pt was in agreement with treatment plan. 13. The risks benefits and side effects of medications were discussed with the patient, including alternatives and no treatment. 14. Continue lurasidone 20 mg PO QAM for mood take with 300 Kcal of food. Review of Systems Constitutional: Denies: fever, chills, weakness, weight change Eyes: Denies: eye pain, vision change Ears, Nose, Throat: Denies: ear pain, throat pain, dental pain, hearing loss, congestion Cardiovascular: Denies: chest pain, palpitations, dyspnea on exertion Respiratory: Denies: cough, dyspnea, wheezes Gastrointestinal: Denies: abdominal pain, nausea, vomiting, diarrhea, constipation Musculoskeletal: Denies: joint swelling, joint pain Neurological: Denies: headache, weakness, numbness, memory loss Psychiatric: Reports: depression Results - Vital Signs Vital Signs: Temp Pulse Resp BP Pulse Ox 98.7 F 96 16 115/68 98 03/06/18 08:49 03/06/18 08:49 03/06/18 08:49 03/06/18 08:49 03/06/18 08:49 - Labs Labs: Laboratory Results - last 24 hr 03/05/18 14:48 Beta HCG, Quant < 1 Assessment and Plan (1) Bipolar disorder current episode depressed Current visit: Yes Status: Acute Plan: Continue hospitalization, Close observation, Suicide Precautions per unit protocol, Encourage participation in unit milieu, Group Therapy, Monitor sleep, Monitor appetite Risks, benefits, side effects, alternatives discussed w/pt: Yes Patient agreeable to treatment: Yes Qualifiers: Current episode severity: severe Psychotic features: without psychotic features Qualified Code(s): F31.4 - Bipolar disorder, current episode depressed, severe, without psychotic features (2) Borderline personality disorder Current visit: Yes Status: Acute Plan: Continue hospitalization, Close observation, Suicide Precautions per unit protocol, Encourage participation in unit milieu, Group Therapy, Monitor sleep, Monitor appetite Risks, benefits, side effects, alternatives discussed w/pt: Yes Patient agreeable to treatment: Yes (3) Suicidal ideation Current visit: Yes Status: Acute Plan: Continue hospitalization, Close observation, Suicide Precautions per unit protocol, Encourage participation in unit milieu, Group Therapy, Monitor sleep, Monitor appetite Risks, benefits, side effects, alternatives discussed w/pt: Yes Patient agreeable to treatment: Yes Consult Discharge Plan - Plan Referrals: NONE,PCP [Primary Care Provider] - Psychiatry Exam - Constitutional Vitals: Temp Pulse Resp BP Pulse Ox 98.7 F 96 16 115/68 98 03/06/18 08:49 03/06/18 08:49 03/06/18 08:49 03/06/18 08:49 03/06/18 08:49 General appearance: age & developmentally appropriate, well-groomed, well- nourished - Musculoskeletal Gait: normal Station: relaxed Strength & Tone: normal for patient - Psychiatric Patient Orientation: Yes Person, Yes Time, Yes Place Level of alertness: Alert Behavior: calm, cooperative Psychomotor activity: Normal Eye Contact: Maintains Eye Contact Mood Description: Euthymic/stable Affect description: congruent with mood, full range Speech Volume: Normal Speech pattern: normal rate, normal rhythm, normal tone, fluent, spontaneous Language & Vocabulary: consistent with education Thought Process: Linear, Goal Oriented Thought Content: No Suicidal ideation, No Homicidal ideation, No Overt delusions Perceptual Disturbances: No Auditory hallucinations, No Visual hallucinations Attention Span Ability: Capable of Focused Attention Memory Description: Grossly Intact Patient Reliability: Reliable Historian Fund of knowledge: Yes abstraction ability, Yes aware of current events Intelligence Estimate: Average Judgment: Limited Insight: Partial
[2018-03-07] MEDS: Lurasidone 20 MG TABLET PO SCH (09:38)
[2018-03-07 09:57] VITALS: BP 123/76
--- NOTE | 2018-03-07 10:53 | Discharge Summary ---
Date of Encounter: 03/07/18 Time of Encounter: 10:15 Diagnosis - Discharge Diagnosis (1) Bipolar disorder current episode depressed Status: Acute Qualifiers: Current episode severity: severe Psychotic features: without psychotic features Qualified Code(s): F31.4 - Bipolar disorder, current episode depressed, severe, without psychotic features (2) Borderline personality disorder Status: Acute (3) Suicidal ideation Status: Acute Medications - Discharge Medications Prescriptions: Lurasidone [Latuda] 20 mg PO DAILY #30 tablet Lurasidone [Latuda] 20 mg PO DAILY #30 tablet 03/07/18 [Rx] Allergy/AdvReac Type Severity Reaction Status Date / Time bee venom protein (honey bee) Allergy Swelling Verified 06/26/16 14:05 of Lip/Tongue/Throat hydrocodone Allergy Hives Verified 11/08/15 11:46 Results Procedures and tests throughout hospitalization: Completed Lab Orders Category Date Time Status Acetaminophen Stat Lab 03/03/18 15:46 Completed Basic Metabolic Panel Stat Lab 03/03/18 15:46 Completed Complete Blood Count [HEME] Stat Lab 03/03/18 15:46 Completed Drug Screen, Urine [UCHEM] Stat Lab 03/03/18 16:10 Completed Ethanol Stat Lab 03/03/18 15:46 Completed HCG,Beta,Quant.for Routine Lab 03/05/18 14:48 Completed Salicylate Stat Lab 03/03/18 15:46 Completed Urinalysis reflex Microscopic [URIN] Stat Lab 03/03/18 16:10 Completed Provider Date of admission: 03/03/18 20:24 Primary care physician: PCP NONE Discharging clinician: Walter Conroy Psychiatry Exam - Constitutional Vitals: Temp Pulse Resp BP Pulse Ox 98.1 F 71 16 123/76 99 03/07/18 09:00 03/07/18 09:00 03/07/18 09:00 03/07/18 09:00 03/07/18 09:00 General appearance: age & developmentally appropriate, well-groomed, well- nourished - Musculoskeletal Gait: normal Station: relaxed Strength & Tone: normal for patient - Psychiatric Patient Orientation: Yes Person, Yes Time, Yes Place Level of alertness: Alert Behavior: calm, cooperative Psychomotor activity: Normal Eye Contact: Maintains Eye Contact Mood Description: Euthymic/stable Affect description: congruent with mood, full range Speech Volume: Normal Speech pattern: normal rate, normal rhythm, normal tone, fluent, spontaneous Language & Vocabulary: consistent with education Thought Process: Linear, Goal Oriented Thought Content: No Suicidal ideation, No Homicidal ideation, No Overt delusions Perceptual Disturbances: No Auditory hallucinations, No Visual hallucinations Attention Span Ability: Capable of Focused Attention Memory Description: Grossly Intact Patient Reliability: Reliable Historian Fund of knowledge: Yes abstraction ability, Yes aware of current events Intelligence Estimate: Average Judgment: Limited Insight: Partial Hospital Course Hospital course: Pt is a 27 yo, , female, never x2, x2, with 4 children (2, 4, 6,8)who presented for mood and depression with suicidal ideations to the emergency department. Upon admission pt noted thoughts that she wants to kill myself, via "jump off the bridge. Pt noted she is "really good today." Pt noted she felt safe and comfortable for D/C home. Pt noted she is staying with her "adopted daughter." Pt agreed to follow up outpt [facility]. Pt Noted she is feeling more optimistic about her treatment plan. Patient noted a significant reeducation in her depression and anxiety during her stay at [facility]. Pt noted that she slowly improved to the point that she was comfortable and safe to D/C. Pt noted she felt hers medications were working well and denied any current side effects. Treatment team encouraged Pt to stay out of bed and try to find activities to do, verbalized understanding. pt reported that she felt safe on the unit and comfortable for Home with her daughter. Pt Denied suicidal/homicidal ideations, denied any problems or concerns with medications or side effects. PT voiced progression towards treatment goals and was offered a copy of updated treatment plan completed during visit today. Denied any immediate needs or concerns. Pt denied any access to guns or weapon. Pt throughout her stay on in psych pt felt like her medications were working and felt comfortable being discharged on these medications. Pt was advised to take all medications as prescribed, follow up with all scheduled appointments and abstain from any alcohol or illicit substances. Pt was in agreement. Pt felt safe and comfortable to be discharged to her home and follow up out pt mental health. Pt was very optimistic about her D/C. Pt felt safe and comfortable for D/C. Pt stated that she was doing "okay," today. Pt stated that she slept "8 hours," last night. Pt stated that her appetite is"good."Pt stated that she rates her depression a "0," on a scale of 0-10 with 10 being the worst and 0 being none. Pt stated that she rates her anxiety "a 0," on the same scale. Pt denies any auditory or visual hallucinations. Pt denied any thoughts to harm herself or anyone else. Pt felt safe and comfortable for D/C. The patient was educated primarily by verbal means about her diagnoses and their manifestations in her life. The option for treatment including group individual therapy programming was offered to her and the use of medications with all their potential risks, benefits, and side-effects were discussed with the pt at length. Pt was given the opportunity to ask questions and she participated in the treatment and planning process. Pt felt ready and eager to be discharged from the from the inpt psych unit to be discharged home. Pt felt she was safe for this disposition. Pt was considered to be able to participate in informed consent and decision-making with respect to medical, legal and financial issues at the time of her discharge PT continues to agree to utilizing lurasidone for medication management of Bipolar D/O. Pt was educated on the risks benefits and side-effects of these medications including no medication, pt was in agreement. Pt denied any hx of HEP C, TBIs, HIV or seizures. No TD noted, AIMS=0 Tobacco: 1ppd Alcohol: Denies Street: Marijuana daily Caffeine: 2-3 per day 1. Psychiatric Illness management 2. The treatment team reviewed with the patient the diagnosis and treatment recommendations to include the risks, benefits, and side effects of chosen medications. 3. The patient verbalized understanding and agreed with the treatment regimen as outlined above. 4. The patient was encouraged to participate in groups. 5. Medical records, Labs, Diagnotic tests reviewed 6. Interval History. 7. Review current labs 8. Continue current medications 9. Supportive Therapy Provided 10. Pt had an opportunity to ask questions and address concerns 11. Pt encouraged to continue therapy group or individual. 12. Pt was in agreement with treatment plan. 13. The risks benefits and side effects of medications were discussed with the patient, including alternatives and no treatment. 14. Continue lurasidone 20 mg PO QAM for mood take with 350 Kcal of food. (Additionally due to pt being sexually active and not on control) 15. Pt educated on abstaining from any alcohol or illixt substances, following up with all scheduled appointments, and taking all medicaitons as prescribed. 16. D/C pt to adopted daughters, and then prison and her adopted children's grandmother.. Time spent discussing smoking cessation with patient: more than 10 minutes Does patient wish to continue nicotine replacement upon disc: No - Time Spent with Patient Total time spent providing and/or coordinating discharge services: Greater than 30 minutes Assessment and Plan - Patient/Caregiver Discharge Instructions Activity: resume usual activities as tolerated Diet: regular diet Additional Instructions: Pt plans to follow up with [facility] apt will be scheduled on Thursday03/08/2018. - Follow up Plan Follow up with: NONE,PCP [Primary Care Provider] - Overall status at discharge: Stable Disposition: Home, Self-Care Quality - Multiple Antipsychotics Patient discharged on 2 or more antipsychotic medications: No - Justification Documentation of: No documentation of justification - Additional Details Additional Details: pt on one antipsychotic Procedures - Procedures Procedures: Medication Management, Crisis Stabilization, Supportive Therapy, Group Therapy, Psychoeducational Therapy
== END 2018-03-07 11:20 | disposition home or self-care (01) | DRG 753 ==
LOC: EMEROOARM 15:23 → 1ANU 20:24
PROVIDERS: ADMIT General Practice; ATTEND General Practice

== ENCOUNTER 2021-12-22 14:31 | Inpatient (IN) ==
[2021-12-22 15:18] LABS: Basophils % 0.4 %; Eosinophils % 0.4 %; Hematocrit 42.2 % (35.3-44.9); Hemoglobin 14.1 g/dL (11.5-15.4); Immature Granulocytes % 0.1 % (0-4); Lymphocytes # 1.7 K/mcL (0.6-4.6); Lymphocytes % 22.4 %; Mean Corpuscular HGB Conc 33.4 g/dL (31.6-35.5); Mean Corpuscular Hemoglobin 30.8 pg (28.0-33.3); Mean Corpuscular Volume 92.1 fL (83.0-100.0); Monocytes # 0.5 K/mcL (0.0-1.3); Monocytes % 6.2 %; Neutrophils # 5.4 K/mcL (1.6-8.9); Platelet Count 285 K/mcL (140-400); Red Blood Count 4.58 M/mcL (3.82-4.97); Red Cell Distribution Width 12.3 % (11.5-14.5); Segmented Neutrophils % 70.5 %; White Blood Count 7.7 K/mcL (4.3-11.1)
[2021-12-22 15:23] LABS: Estimated Average Glucose 91 mg/dl; Hemoglobin A1C 4.8 %
[2021-12-22 15:38] LABS: Acetaminophen < 10 mcg/mL (10-20); BUN/Creatinine Ratio 13 (6-26); Blood Urea Nitrogen 10 mg/dL (6-20); Calcium 9.4 mg/dL (8.6-10.3); Carbon Dioxide 25 mEq/L (23-29); Chloride 106 mEq/L (98-107); Cholesterol 166 mg/dL (< 200); Ethanol < 10 mg/dL (Less than 10); Glucose 104 mg/dL (70-105); HDL Cholesterol 56 mg/dL (40-59); LDL Cholesterol,Calculated 94 mg/dL (< 100); Osmolality,Calculated 285 (280-300); Potassium 3.4 mEq/L (3.5-5.1); Salicylate < 2.5 mg/dL (15.0-30.0); Sodium 138 mEq/L (136-145); Triglycerides 80 mg/dL (< 150)
[2021-12-22] MEDS ORDERED: *HR* LORazepam 2 MG/ML VIAL IM ONE (16:00)
[2021-12-22] MEDS ORDERED: *HR* LORazepam 2 MG/ML VIAL ONE (16:00)
[2021-12-22] MEDS ORDERED: *HR* LORazepam 1 MG TABLET PO ONE (16:02)
[2021-12-22] MEDS ORDERED: *HR* LORazepam 1 MG TABLET ONE (16:03)
[2021-12-22 16:30] LABS: Bilirubin,Urine Negative (Negative); Blood,Urine Trace (Negative); Clarity,Urine Clear (Clear); Color,Urine Yellow (Yellow); Glucose,Urine (UA) Normal (Normal); Ketones,Urine 80 mg/dL (Negative); Leukocyte Esterase,Urine Negative (Negative); Mucus,Urine Moderate per lpf (None-Few); Nitrite,Urine Negative (Negative); Protein,Urine 30 mg/dL (Neg-Trace); RBC,Urine 0-3 per hpf (0-3); Specific Gravity,Urine 1.023 (1.010-1.025); Squamous Epithelial Cell,Urine Few per hpf (None-Few); Urobilinogen,Urine Normal (Normal); WBC,Urine 0-3 per hpf (0-3)
[2021-12-22 16:41] LABS: Amphetamine Screen,Urine Negative ng/mL (Cutoff=1000); Barbiturate Screen,Urine Negative ng/mL (Cutoff=200); Benzodiazepines Screen,Urine Negative ng/mL (Cutoff=200); Cannabinoid Screen,Urine Positive ng/mL (Cutoff = 50); Cocaine Screen,Urine Negative ng/mL (Cutoff= 300); Opiate Screen,Urine Negative ng/mL (Cutoff=300); Phencyclidine Screen,Urine Negative ng/mL (Cutoff=25)
[2021-12-22] MEDS ORDERED: Haloperidol Lactate 5 MG/ML VIAL IM PRN (18:40)
[2021-12-22] MEDS ORDERED: *HR* LORazepam 2 MG/ML VIAL IM PRN (18:40)
[2021-12-22] MEDS ORDERED: haloperidoL 5 MG TABLET PO PRN (18:40)
[2021-12-22] MEDS ORDERED: *HR* LORazepam 1 MG TABLET PO PRN (18:40)
[2021-12-22] MEDS ORDERED: QUEtiapine Fumarate 25 MG TABLET PO PRN (18:40)
[2021-12-22 19:09] LABS: Influenza A PCR Negative (Negative); Influenza B PCR Negative (Negative); Resp. Syncytial Virus PCR Negative (Negative)
[2021-12-22 19:10] LABS: SARS-CoV-2 by PCR (In House) Negative (Negative)
[2021-12-22] MEDS ORDERED: hydrOXYzine pamoate 25 MG CAPSULE PO PRN (22:14)
[2021-12-22] MEDS: Ibuprofen 400 MG TABLET PO PRN (22:45)
[2021-12-23] MEDS: Nicotine 21 MG PATCH.TD24 TD SCH (10:25)
[2021-12-23] MEDS ORDERED: traZODone 50 MG TABLET PO PRN (12:23)
[2021-12-23] MEDS ORDERED: diazePAM 5 MG TABLET PO SCH (12:30)
[2021-12-23] MEDS ORDERED: diazePAM 5 MG TABLET PO PRN (12:35)
[2021-12-23] MEDS ORDERED: MOM Conc 10 ML UD.LIQ PO PRN (14:51)
[2021-12-23] MEDS ORDERED: Mag Hydrox/Al Hydrox/Simeth 30 ML UDC PO PRN (14:51)
[2021-12-23] MEDS ORDERED: Ondansetron ODT 4 MG TAB.RAPDIS SL ONE (16:31)
[2021-12-23] MEDS: Ibuprofen 400 MG TABLET PO PRN (18:21)
[2021-12-23] MEDS ORDERED: Melatonin 3 MG TABLET PO PRN (23:37)
[2021-12-24] MEDS: Nicotine 21 MG PATCH.TD24 TD SCH (09:56)
[2021-12-24 10:01] VITALS: BP 131/85; PULSE 85; TEMP 97.6; O2SAT 96
[2021-12-24] MEDS ORDERED: Ondansetron ODT 4 MG TAB.RAPDIS SL PRN (10:13)
== END 2021-12-24 12:19 | disposition home or self-care (01) | DRG 753 ==
LOC: EMEROOARM 14:31 → 1ANU 19:46
PROVIDERS: ADMIT Psychiatry & Neurology Psychiatry; ATTEND Psychiatry & Neurology Psychiatry